=== PATIENT | male | born 1990 | race Caucasian/White ===

== ENCOUNTER 2020-09-25 17:35 | Emergency (ER) | payer SELFPAY ==
--- NOTE | ~2020-09-25 | XR_ITS ---
EXAMINATION: XR hand RT min 3V DATE: 09/25/2020 17:50 INDICATION: Pain at the base of the fourth and fifth metacarpals post fall TECHNIQUE: Posteroanterior, oblique and lateral views of the right hand were obtained. COMPARISON: None. FINDINGS: Dorsal subluxation of the fourth and fifth metacarpals. There is a small intra-articular fracture at the volar aspect of the base of the fourth metacarpal which remains in normal alignment relative to t he capitate and hamate and base of the third metacarpal. Additional intra-articular fracture of the h amate with dorsal displacement of a small fragment in conjunction with the base of the fourth and fif th metacarpals. No other acute fractures identified. Suggestion of an old healed fracture at the neck of the fifth metacarpal. Normal alignment throughout the remainder of the right hand. Remaining join t spaces are normal. Prominent soft tissue swelling at the ulnar side of the hand. IMPRESSION: 1. Dorsal subluxations at the fourth and fifth carpal metacarpal joints with displaced intra-articula r fractures involving the base of the fourth metacarpal and dorsal aspect of the hamate. Reviewed, dictated and finalized at location A. IMPRESSION: 1. Dorsal subluxations at the fourth and fifth carpal metacarpal joints with di splaced intra-articular fractures involving the base of the fourth metacarpal a nd dorsal aspect of the hamate.
[2020-09-25 17:38] VITALS: BP 112/96; PULSE 89; RESP 16; TEMP 36.3; O2SAT 100
--- NOTE | 2020-09-25 19:11 | ED.UPPEXIN ---
HPI - Extremity Injury (Upper) General Chief Complaint: Extremity Injury, Upper Stated Complaint: right hand injury Time Seen by Provider: 09/25/20 18:58 Source: patient Mode of arrival: ambulatory Limitations: no limitations History of Present Illness HPI narrative: Patient is a 30-year-old male who presents complaining of right hand pain. Patient reports trip and fall landing on right hand approximately 2 days ago. He reports increased pain and swelling x1 day. Denies other injuries. Patient denies significant medical history. He denies taking [id number] medications for pain prior to arrival. MD complaint: injury to: right Related Data Allergies Allergy/AdvReac Type Severity Reaction Status Date / Time No Known Allergies Allergy Verified 09/25/20 19:00 Review of Systems Review of Systems: Narrative: CONSTITUTIONAL: Denies fever, chills, or sweats. EYES: Denies visual changes, redness, or discharge. ENT: Denies rhinorrhea, congestion, sore throat, or otalgia. CARDIOVASCULAR: Denies chest pain, palpitations, or edema. RESPIRATORY: Denies cough or dyspnea. GASTROINTESTINAL: Denies abdominal pain, nausea, vomiting, or diarrhea. GENITOURINARY: Denies dysuria or hematuria. SKIN: Denies rash or itching. MUSCULOSKELETAL: Reports right hand pain NEUROLOGIC: Denies headache, numbness, dizziness, or weakness. PSYCHIATRIC: Denies anxiety or depression. [facility] Past Medical History Medical History No significant past medical history Surgical History Surgical History No significant past surgical history Family History Family History Other No significant family history Social History Social History Smoking status: Former smoker Alcohol intake: current Alcohol use details: Occasional Substance use: never Living arrangements: with family Occupation/Education: occupation Comments At the time of signature, I have reviewed and agree with nursing past medical, surgical, social, and family history unless otherwise noted. Please see nursing chart for further information. There is no relevant family history pertinent to the presenting complaint. Exam Narrative: Exam Narrative: GENERAL: Well-appearing, well-nourished, and in no acute distress. HEAD: Normocephalic, atraumatic. EYES: EOMI. No redness or drainage. Conjunctiva are normal. ENT: Mucous membranes pink and moist. CHEST: No respiratory distress. HEART: Regular rate and rhythm. GI: Soft, nontender without rebound, or guarding. No distention. Bowel sounds normal in all quadrants. MUSCULOSKELETAL: No bony tenderness. EXTREMITIES: Right hand: Edema, tenderness with palpation over fourth and fifth metacarpal, full flexion extension of fingers. Good capillary refill, distal sensation intact. SKIN: Warm, dry, no rash. NEURO: No focal deficits. Alert and oriented x3. Gait steady. PSYCH: Normal affect. No signs of depression or anxiety. Course Vital Signs Vital signs: Vital Signs Temperature 36.3 C L 09/25/20 17:38 Pulse Rate 89 09/25/20 17:38 Respiratory Rate 16 09/25/20 17:38 Blood Pressure 112/96 H 09/25/20 17:38 Pulse Oximetry 100 09/25/20 17:38 Temperature 36.3 C L 09/25/20 17:38 Pulse Rate 89 09/25/20 17:38 Respiratory Rate 16 09/25/20 17:38 Blood Pressure 112/96 H 09/25/20 17:38 Pulse Oximetry 100 09/25/20 17:38 Reviewed Procedures Orthopedic Splinting/Casting Injury #1: Upper Extremity Injury Location: hand Splint: customized in ED OCL: short arm Pre-Procedure Neuro Vascular Exam: normal Post-Procedure Neuro Vascular Exam: normal MDM - Extremity Injury (Upper) MDM Narrative Medical decision making narrative: Patient has fractures of fourth a
[2020-09-25 20:10] VITALS: BP 118/73; PULSE 78; RESP 16; TEMP 36.3; O2SAT 100
== END 2020-09-25 20:10 | disposition home or self-care (01) ==
PROVIDERS: Emergency Provider Nurse Practitioner
DX: S62.314A Displaced fracture of base of fourth metacarpal bone, right hand, initial encounter for closed fracture (principal); S62.141A Displaced fracture of body of hamate [unciform] bone, right wrist, initial encounter for closed fracture; Z87.891 Personal history of nicotine dependence; W01.0XXA Fall on same level from slipping, tripping and stumbling without subsequent striking against object, initial encounter
CPT/HCPCS: 29125; 73130; 99284